=== PATIENT | female | born 1965 | race Caucasian/White ===

== ENCOUNTER 2025-06-05 10:07 | Emergency (ER) | payer MEDICAID, SELFPAY ==
[2025-06-05 10:08] VITALS: BP 132/72; PULSE 83; RESP 16; TEMP 36.7; O2SAT 96
--- NOTE | 2025-06-05 10:15 | RT.EKG_ITS ---
APPROVED REPORT Exam: Resting ECG Reason for Exam: Malaise Patient Location: E HR:74 bpm ECG Measurements Heart Rate 74 AXIS AR 111 P 42 QRSd 66 QRS 85 QT 343 T 260 QTc 382 Conclusion Sinus rhythm...normal P axis, V-rate 60- 99 Consider anterolateral infarct...Q >30mS, I aVL V3-V6,I,aVL Borderline repol abnormality, diffuse leads...ST dep, T flat/neg, ant/lat/inf -------- No STEMI
[2025-06-05 10:16] VITALS: BP 132/78; PULSE 82; RESP 16; TEMP 36.7; O2SAT 96
[2025-06-05 10:21] VITALS: RESP 16
--- NOTE | 2025-06-05 10:30 | DI.RAD_ITS ---
Exam(s) XR CHEST 2V PA LATERAL EXAM: XR CHEST 2V PA LATERAL CLINICAL HISTORY: Malaise. TECHNIQUE: 2D digital imaging was performed. COMPARISON: No exams were available for comparison FINDINGS: 2 views: Heart size is normal. The mediastinum is not widened. Lungs are clear. No infiltrates nor pleural effusions. IMPRESSION: No acute pulmonary findings. DATA REPOSITORY: RADIATION DOSE DELIVERED:
--- NOTE | 2025-06-05 10:41 | W.ED.GENAD ---
Discharge Plan Disposition Patient Disposition: Home Discharge Details Clinical Impression: Anorexia, Anxiety, Housing insecurity Primary Care Provider: None,None ED Provider: Irving Patel Discharge Instructions Instructions: Psychotherapy, Minimize Weight Loss, Anxiety, Adult ED Additional Instructions: Please follow-up with your primary care provider regarding your visit to the emergency department today. Be sure to discuss results of all test performed here today to include radiology, and laboratory testing as well as results for any pending cultures. I would recommend following up with a primary care provider, parts assembler, and behavioral health/psychotherapist for further management of your symptoms. Should your symptoms worsen, or if you develop new concerning symptoms, please return immediately emergency department for further evaluation. Care Plan Goals: Establish primary care, as well as psychiatric/behavioral health. On outpatient basis. Improve nutritional intake. HPI General Date/Time Provider Initiated Documentation: 06/05/25 10:19. HPI Narrative: The patient is a 59-year-old female presenting with generalized malaise. She resides in a home group home and reports experiencing anorexia and periods of not eating for the past 1.5 years. Her weight was 125 pounds 1.5 years ago; her current weight is unknown, but she notes that her clothes fit more loosely. She denies any recent cough or illness. The patient reports visual disturbances, including blurry vision and constant epiphora with clear, viscous tears, and occasional matting of the eyes upon waking. She also reports short sleep duration. She has experienced loss of dental enamel, gingival recession, and alopecia. Her sleep is disrupted by anxiety and nervousness. She found conversation with [facility] helpful and was extremely anxious prior to this visit. She denies any pain or thoughts of self-harm or harm to others. The patient reports dysphagia for the past 6 months. Additional history is provided by the care management team. They note that the patient has been living at the group home for the past approximately 20 months, notes that she has not left the confines of the group home for more than several hours her entire time there. They note that she does not shower and is wearing the same clothes that she can moan with. Also note that she has not been eating, has a significant weight loss over the past 20 months and concerned that there may be an underlying medical concern. Patient was recently evaluated, and set up with referrals for psychiatry, case management acute, but does not have a primary care provider at this time. PAST SURGICAL HISTORY: section 20 years ago. Related Data Allergies Allergy/AdvReac Type Severity Reaction Status Date / Time No Known Allergies Allergy Unverified 06/05/25 10:44 General Stated Complaint: GenMedical LAURENCE: 4 Review of Systems All systems reviewed & are unremarkable except as noted in HPI and below Exam Narrative Exam Narrative: Vital signs: Reviewed. General Appearance: Alert and oriented. No acute distress. Appears anxious and thin. HEENT: Oropharynx normal. Tonsils are without hypertrophy or exudate. Uvula midline. No appreciable masses in the oral pharyngeal space. No pain with tracheal rocking. No palpable anterior posterior cervical lymphadenopathy. Eyes are reactive and equal to light, 3 to 4 mm meters bilaterally, no conjunctival injection, no exudate noted on exam Neck: No pain, trachea midline, non-tender. Respiratory: Lungs clear bilaterally. Cardiovascular: RRR, no edema. Gastrointestinal: Abdomen non-tender. Back: No midline tenderness to palpation or palpable step-offs of the C/T/L spine. Skin: Warm and dry, no rash. Neurological: Normal Gait, Grossly intact. Psychiatric: Appropriate for situation. Course Vital Signs Vital signs: Vital Signs Temperature 36.7 C 06/05/25 10:08 Pulse 83 06/05/25 10:08 Respiratory Rate 16 06/05/25 10:08 Blood Pressure 132/72 06/05/25 10:08 Pulse Oximetry 96 06/05/25 10:08 Temperature 36.7 C 06/05/25 10:16 Pulse 82 06/05/25 10:16 Respiratory Rate 16 06/05/25 10:21 Respiratory Effort Normal, Non-Labored 06/05/25 10:21 Respiratory Depth Normal 06/05/25 10:21 Respiratory Pattern Normal 06/05/25 10:21 Blood Pressure 132/78 06/05/25 10:16 Pulse Oximetry 96 06/05/25 10:16 Oxygen Delivery Method Room Air 06/05/25 10:16 Oxygen Flow Rate 0 06/05/25 10:08 Pain Level 0 06/05/25 10:08 Lab/Test Results Lab/Test Results: Laboratory Tests Range/Units 06/05/25 10:51 WBC (4.4-10.8) 10^3/uL 5.23 RBC (3.93-5.22) 10^6/uL 4.12 Hgb (11.2-15.7) g/dL 10.5 L Hct (36.0-46.0) % 34.0 L MCV (80-95) fL 83 MCH (27.0-33.0) pg 25.5 L MCHC (32.0-36.0) % 30.9 L RDW (11.7-14.6) % 17.2 H Plt Count (130-400) 10^3/uL 360 MPV (8.0-11.0) fL 9.6 Immature Gran % % 0.2 Neutrophils % % 63.5 Lymphocytes % % 28.3 Monocytes % % 6.5 Eosinophils % % 1.1 Basophils % % 0.4 Nucleated RBC % (0.0-0.3) % 0.0 Absolute Neutrophils (1.2-6.7) 10^3/uL 3.32 Absolute Lymphocytes (1.2-3.4) 10^3/uL 1.48 Absolute Monocytes (0.1-0.8) 10^3/uL 0.34 Absolute Eosinophils (0.0-0.7) 10^3/uL 0.06 Absolute Basophils (0.0-0.2) 10^3/uL 0.02 Sodium (136-145) mmol/L 142 Potassium (3.5-5.1) mmol/L 3.4 L Chloride (98-107) mmol/L 102 Carbon Dioxide (21.0-32.0) mmol/L 30.9 Anion Gap (3-11) mmol/L 9.1 BUN (7-18) mg/dL 11 Creatinine (0.55-1.02) mg/dL 0.7 Est GFR (CKD-EPI 2020) (mL/min/1.73m2) 100.81 Glucose (74-106) mg/dL 99 Calcium (8.5-10.1) mg/dL 9.5 Phosphorus (2.6-4.7) mg/dL 5.0 H Magnesium (1.8-2.4) mg/dL 2.1 Total Bilirubin (0.2-1.0) mg/dL 0.4 AST (15-37) U/L 20 ALT (14-59) U/L 26 Alkaline Phosphatase (46-116) U/L 105 Total Protein (6.4-8.2) g/dL 7.9 Albumin (3.4-5.0) g/dL 3.9 Lipase (<78) U/L 60 TSH (0.36-3.74) uIU/mL 1.72 Medical Decision Making Initial Assessment: 59-year-old female with generalized malaise, significant weight loss, blurry vision, weeping eyes, loss of enamel, receding gums, hair loss, difficulty swallowing, anxiety, and sleep disturbances. Differential Diagnosis: - Nutritional deficiencies: Weight loss, blurry vision, weeping eyes, loss of enamel, receding gums, hair loss. Blood work for blood counts, thyroid function, electrolytes. - Thyroid dysfunction: Weight loss, hair loss. Blood work for thyroid function. - Anxiety: Difficulty sleeping. Discuss treatment options after blood work results. ED Course: Blood work obtained for blood counts, thyroid function, electrolytes. Imaging without acute findings. Lab work shows hypochromic microcytic anemia suspect secondary to poor nutritional intake. Mild hyperphosphatemia and a mild hypokalemia, which have been treated with intravenous fluids and p.o. potassium repletion. Remainder of workup is within normal limits and shows no acute issues requiring hospitalization. Will refer patient to our primary care clinic for further management, and encouraged behavioral health/psych of therapy for follow-up as a and concerned that she is an eating disorder. Final Assessment: Blood work obtained to evaluate nutritional deficiencies, thyroid dysfunction, and other underlying issues. EKG without ischemic changes or evidence of electrolyte disturbance. Lab Data Labs: Exam(s) XR CHEST 2V PA LATERAL EXAM: XR CHEST 2V PA LATERAL CLINICAL HISTORY: Malaise. TECHNIQUE: 2D digital imaging was performed. COMPARISON: No exams were available for comparison FINDINGS: 2 views: Heart size is normal. The mediastinum is not widened. Lungs are clear. No infiltrates nor pleural effusions. IMPRESSION: No acute pulmonary findings. DATA REPOSITORY: RADIATION DOSE DELIVERED: ECG Data Interpretation: Rhythm: NSR Rate: 74 bpm [place]: Normal axis Intervals: Normal intervals Other findings: No acute ST segment or T wave changes to suggest acute ischemia. PFSH All Active Problems (Updated 06/05/25 @ 12:22 by Irving Patel MD) Housing insecurity (Acute) Anxiety (Chronic) Anorexia (Acute) Social History Smoking/Tobacco Use Status: Former Tobacco Use Smoking risk assessment performed?: Yes Substance use type: does not use
[2025-06-05] MEDS: Normal Saline 1,000 ML 1000 ML IV (10:46)
[2025-06-05 11:21] LABS: ALT 26 U/L (14-59); AST 20 U/L (15-37); Albumin 3.9 g/dL (3.4-5.0); Alkaline Phosphatase 105 U/L (46-116); Anion Gap 9.1 mmol/L (3-11); BUN 11 mg/dL (7-18); Bilirubin, Total 0.4 mg/dL (0.2-1.0); CO2 30.9 mmol/L (21.0-32.0); Calcium 9.5 mg/dL (8.5-10.1); Chloride 102 mmol/L (98-107); Estimated GFR 100.81 (mL/min/1.73m2); Glucose 99 mg/dL (74-106); Lipase 60 U/L (<78); Magnesium 2.1 mg/dL (1.8-2.4); Potassium 3.4 mmol/L (3.5-5.1); Sodium 142 mmol/L (136-145); Total Protein 7.9 g/dL (6.4-8.2)
[2025-06-05 11:25] LABS: Abs Immature Grans 0.01 10^3/uL (0.0-0.06); HCT 34.0 % (36.0-46.0); HGB 10.5 g/dL (11.2-15.7); Immature Grans % 0.2 %; MCH 25.5 pg (27.0-33.0); MCHC 30.9 % (32.0-36.0); MCV 83 fL (80-95); MPV 9.6 fL (8.0-11.0); Platelet Count 360 10^3/uL (130-400); RBC 4.12 10^6/uL (3.93-5.22); RDW 17.2 % (11.7-14.6); RDW-SD 52.0 fL; WBC 5.23 10^3/uL (4.4-10.8)
[2025-06-05 11:29] LABS: TSH (W/Ref FT4) 1.72 uIU/mL (0.36-3.74)
[2025-06-05 12:35] VITALS: BP 110/67; PULSE 68; TEMP 37.1; O2SAT 100
[2025-06-05] MEDS: Potassium Chloride 20 MEQ TABCR 40 MEQ PO (12:39)
[2025-06-05 12:45] VITALS: BP 100/78; PULSE 74; RESP 18; TEMP 36.7; O2SAT 100
== END 2025-06-05 12:45 | disposition home or self-care (01) ==
PROVIDERS: Emergency Provider General Practice
DX: R63.0 Anorexia (principal); F41.9 Anxiety disorder, unspecified; Z59.01 Sheltered homelessness
CPT/HCPCS: 80053; 83690; 93005; 96360; 99284; 71046; 83735; 84100; 84443; 85025; 93010